=== PATIENT | male | born 1965 | race Two or more races ===

== ENCOUNTER 2021-03-17 20:58 | Inpatient (IN) | payer MEDICAID ==
[~2021-03-17] VITALS: Ht 182.9 cm; Wt 114.4 kg
[~2021-03-17 20:58] MED LIST: HEPARIN 1000 UNITS/ML 10ML ONE; NICARDIPINE 100MCG/ML 10ML VIAL (CATH LAB) IV ONE; NITROGLYCERIN 50MCG/ML 10ML VIAL (CATH LAB) IV ONE
[2021-03-17] MEDS ORDERED: MORPHINE SULFATE 4 MG/ML CPJ (NOT FOR IM USE) IV SCH (21:15)
[2021-03-17] MEDS ORDERED: ASPIRIN 325MG EC TABLET PO ONE (21:15)
[2021-03-17] MEDS: NITROGLYCERIN 50MG PREMIX 250 ML IV SCH (21:28)
[2021-03-17] MEDS ORDERED: NITROGLYCERIN 50MG PREMIX 250 ML IV SCH (21:30)
[2021-03-17] MEDS ORDERED: NALOXONE HCL 0.4 MG/ML 1ML VIAL IV PRN (21:30)
[2021-03-17 21:36] LABS: BASOPHILS % 0.3 % (0.0-2.0); EOSINOPHILS % 0.2 % (0.0-5.0); HEMATOCRIT. 52.2 % (42.0-52.0); HEMOGLOBIN. 17.8 g/dL (14.0-18.0); LYMPHOCYTES % 10.3 % (20.0-50.0); MEAN CORPUSCULAR HEMOGLOBIN 31.7 pg (28.0-32.0); MEAN CORPUSCULAR VOLUME 92.7 fL (80.0-94.0); MEAN PLATELET VOLUME 7.9 fl (7.4-10.4); MONOCYTES % 5.3 % (2.0-8.0); NEUTROPHILS % 83.9 % (40.0-76.0); PLATELET 288 x1000/uL (130-400); RED BLOOD CELL COUNT 5.63 mill/uL (4.7-6.1); RED CELL DISTRIBUTION WIDTH 12.3 % (11.6-14.6)
[2021-03-17 21:42] LABS: CHLORIDE 105 mEq/L (98-107)
[2021-03-17] MEDS ORDERED: VERAPAMIL HCL 2.5 MG/1 ML 2ML VIAL IV ONE (21:48)
[2021-03-17] MEDS ORDERED: IODIXANOL 320MG/ML 100 ML BOTTLE IV ONE ×2 (21:48→22:36)
[2021-03-17] MEDS ORDERED: LIDOCAINE HCL 1% 20ML VIAL (Pyxis) INJ ONE (21:48)
[2021-03-17] MEDS ORDERED: IOHEXOL-300 100 ML BOTTLE ONE (21:49)
[2021-03-17] MEDS ORDERED: FENTANYL CITRATE/PF 50MCG/ML 2ML VIAL ONE ×2 (22:05→22:58)
[2021-03-17] MEDS ORDERED: MIDAZOLAM HCL 2 MG/2 ML VIAL ONE ×2 (22:06→22:12)
[2021-03-17] MEDS ORDERED: HEPARIN SODIUM 1,000 UNIT/1ML VIAL IV ONE (22:16)
[2021-03-17] MEDS ORDERED: HYDRALAZINE 20MG/ML VIAL ONE (22:43)
[2021-03-17] MEDS ORDERED: TICAGRELOR 90 MG TABLET PO ONE (22:43)
[2021-03-17] MEDS ORDERED: METOPROLOL TARTRATE 5MG/5ML VIAL IV ONE (22:54)
[2021-03-17] MEDS ORDERED: DIPHENHYDRAMINE 50MG/ML VIAL ONE (22:58)
[2021-03-17] MEDS ORDERED: ATROPINE SULFATE 1MG/10ML SYR IV PRN (23:30)
[2021-03-17] MEDS: SODIUM CHLORIDE 0.45% 500 ML IV SCH (23:30)
[2021-03-18] VITALS (89 sets, daily range): BP systolic 110–159; BP diastolic 56–116
[2021-03-18] MEDS: ACETAMINOPHEN 325MG TABLET PO PRN ×3 (00:40→08:18)
[2021-03-18] MEDS: ATORVASTATIN CALCIUM 40MG TABLET PO SCH ×2 (00:40→21:14)
[2021-03-18] MEDS: AMLODIPINE 10MG TABLET PO SCH ×2 (00:41→08:18)
[2021-03-18] MEDS: METOPROLOL TARTRATE 50MG TABLET PO SCH ×4 (00:42→21:14)
[2021-03-18] MEDS: SODIUM CHLORIDE 0.45% 500 ML IV SCH ×3 (01:26→11:30)
[2021-03-18] MEDS ORDERED: AMIODARONE HCL 900 MG in DEXT 5% WATER 482 ML IV PRN (02:00)
[2021-03-18] MEDS ORDERED: AMIODARONE HCL 150 MG in DEXT 5% WATER 100 ML IV SCH (02:00)
[2021-03-18] MEDS ORDERED: MAGNESIUM 2 G PREMIX 50 ML IV PRN (02:00)
[2021-03-18] MEDS: NITROGLYCERIN 50MG PREMIX 250 ML IV SCH ×2 (05:59→23:33)
[2021-03-18 06:19] LABS: BASOPHILS % 0.3 % (0.0-2.0); HEMOGLOBIN. 13.3 g/dL (14.0-18.0); LYMPHOCYTES % 11.7 % (20.0-50.0); MEAN CORPUSCULAR HEMOGLOBIN 31.5 pg (28.0-32.0); MEAN CORPUSCULAR VOLUME 92.7 fL (80.0-94.0); MONOCYTES % 6.2 % (2.0-8.0); NEUTROPHILS % 81.8 % (40.0-76.0); RED BLOOD CELL COUNT 4.21 mill/uL (4.7-6.1); RED CELL DISTRIBUTION WIDTH 12.2 % (11.6-14.6)
[2021-03-18] MEDS: TICAGRELOR 90 MG TABLET PO SCH ×2 (08:18→17:48)
[2021-03-18] MEDS ORDERED: CLOPIDOGREL 75MG TABLET PO SCH (09:00)
[2021-03-18] MEDS: ONDANSETRON HCL 4MG/2ML INJ IV PRN ×2 (09:20→18:00)
[2021-03-18] MEDS: ASPIRIN 325MG TABLET PO SCH (09:21)
[2021-03-18 10:55] LABS: CHLORIDE 103 mEq/L (98-107)
[2021-03-18 12:06] LABS: PLATELET 116 x1000/uL (130-400)
[2021-03-18] MEDS: MORPHINE SULFATE 2 MG/ML CPJ (NOT FOR IM USE) IV PRN ×3 (13:46→21:59)
[2021-03-18] MEDS: SODIUM CHLORIDE 0.45% 1,000 ML IV SCH (17:51)
[2021-03-19] VITALS (84 sets, daily range): BP systolic 104–163; BP diastolic 53–91
[2021-03-19] MEDS: SODIUM CHLORIDE 0.45% 1,000 ML IV SCH ×4 (03:07→22:28)
[2021-03-19] MEDS: MORPHINE SULFATE 2 MG/ML CPJ (NOT FOR IM USE) IV PRN (03:49)
[2021-03-19 06:36] LABS: CHLORIDE 103 mEq/L (98-107)
[2021-03-19 06:40] LABS: BASOPHILS % 0.3 % (0.0-2.0); EOSINOPHILS % 0.4 % (0.0-5.0); HEMATOCRIT. 41.4 % (42.0-52.0); HEMOGLOBIN. 14.4 g/dL (14.0-18.0); LYMPHOCYTES % 15.8 % (20.0-50.0); MEAN CORPUSCULAR HEMOGLOBIN 32.1 pg (28.0-32.0); MEAN CORPUSCULAR VOLUME 92.4 fL (80.0-94.0); MEAN PLATELET VOLUME 7.8 fl (7.4-10.4); MONOCYTES % 13.8 % (2.0-8.0); NEUTROPHILS % 69.7 % (40.0-76.0); PLATELET 236 x1000/uL (130-400); RED BLOOD CELL COUNT 4.48 mill/uL (4.7-6.1); RED CELL DISTRIBUTION WIDTH 11.9 % (11.6-14.6)
[2021-03-19] MEDS: ONDANSETRON HCL 4MG/2ML INJ IV PRN (09:08)
[2021-03-19] MEDS: MORPHINE SULFATE 4 MG/ML CPJ (NOT FOR IM USE) IV PRN (09:08)
[2021-03-19] MEDS: ASPIRIN 325MG TABLET PO SCH (09:08)
[2021-03-19] MEDS: TICAGRELOR 90 MG TABLET PO SCH ×2 (09:08→17:17)
[2021-03-19] MEDS: AMLODIPINE 10MG TABLET PO SCH (09:09)
[2021-03-19] MEDS: METOPROLOL TARTRATE 50MG TABLET PO SCH ×2 (09:09→21:00)
[2021-03-19] MEDS: LISINOPRIL 20MG TABLET PO SCH (09:53)
[2021-03-19] MEDS: ATORVASTATIN CALCIUM 40MG TABLET PO SCH (21:16)
[2021-03-20] VITALS (63 sets, daily range): BP systolic 81–134; BP diastolic 34–74
[2021-03-20] MEDS: AMLODIPINE 10MG TABLET PO SCH (09:30)
[2021-03-20] MEDS: ASPIRIN 325MG TABLET PO SCH (09:30)
[2021-03-20] MEDS: METOPROLOL TARTRATE 50MG TABLET PO SCH (09:30)
[2021-03-20] MEDS: TICAGRELOR 90 MG TABLET PO SCH (09:30)
[2021-03-20] MEDS: SODIUM CHLORIDE 0.45% 1,000 ML IV SCH ×2 (09:31→18:43)
[2021-03-20] MEDS: LISINOPRIL 20MG TABLET PO SCH (09:31)
[2021-03-20] MEDS ORDERED: ISOSORBIDE MONONITRATE 30MG TABLET SR 24HR PO SCH (10:45)
[2021-03-20] MEDS ORDERED: SODIUM CHLORIDE 0.9% 250 ML IV ONE (13:45)
[2021-03-20] MEDS ORDERED: SODIUM CHLORIDE 0.9% 250 ML IV SCH (14:00)
[2021-03-20] MEDS ORDERED: CLOPIDOGREL 75MG TABLET PO SCH (15:30)
[2021-03-20] MEDS: ACETAMINOPHEN 325MG TABLET PO PRN (17:14)
[2021-03-20] MEDS: METOPROLOL TARTRATE 25MG TABLET PO SCH (21:00)
[2021-03-20] MEDS: ATORVASTATIN CALCIUM 40MG TABLET PO SCH (21:54)
[2021-03-21] VITALS (14 sets, daily range): BP systolic 100–142; BP diastolic 49–87
[2021-03-21] MEDS: MORPHINE SULFATE 4 MG/ML CPJ (NOT FOR IM USE) IV PRN ×2 (05:41→06:11)
[2021-03-21 05:55] LABS: BASOPHILS % 0.5 % (0.0-2.0); EOSINOPHILS % 2.2 % (0.0-5.0); HEMATOCRIT. 44.1 % (42.0-52.0); HEMOGLOBIN. 15.2 g/dL (14.0-18.0); LYMPHOCYTES % 26.8 % (20.0-50.0); MEAN CORPUSCULAR HEMOGLOBIN 32.1 pg (28.0-32.0); MEAN CORPUSCULAR VOLUME 93.1 fL (80.0-94.0); MEAN PLATELET VOLUME 7.9 fl (7.4-10.4); MONOCYTES % 9.5 % (2.0-8.0); PLATELET 250 x1000/uL (130-400); RED BLOOD CELL COUNT 4.73 mill/uL (4.7-6.1)
[2021-03-21 06:02] LABS: CHLORIDE 106 mEq/L (98-107)
[2021-03-21] MEDS ORDERED: CLOPIDOGREL 75MG TABLET PO SCH (09:00)
[2021-03-21] MEDS ORDERED: ASPIRIN 81MG TABLET PO SCH (09:00)
[2021-03-21] MEDS ORDERED: ASPI-1497 PO (09:37)
[2021-03-21] MEDS ORDERED: ATOR10TA MT (09:38)
[2021-03-21] MEDS ORDERED: CLOP-31 PO (09:39)
[2021-03-21] MEDS ORDERED: METO1TAB26 MT (09:39)
[2021-03-21] MEDS: METOPROLOL TARTRATE 25MG TABLET PO SCH (09:56)
[2021-03-21] MEDS: ACETAMINOPHEN 325MG TABLET PO PRN (10:07)
== END 2021-03-21 10:30 | disposition home or self-care (01) | DRG 174 ==
LOC: ER 20:58 → CVICU 21:41 → ENRESERV 03-18 00:03 → 5WST 03-21 06:36
PROVIDERS: ADMIT Internal Medicine; ATTEND Internal Medicine
PROC: 027035Z Dilation of Coronary Artery, One Artery with Two Drug-eluting Intraluminal Devices, Percutaneous Approach (ICD-10-PCS; principal; 2021-03-17)
PROC: 4A023N7 Measurement of Cardiac Sampling and Pressure, Left Heart, Percutaneous Approach (ICD-10-PCS; 2021-03-17)
PROC: B211YZZ Fluoroscopy of Multiple Coronary Arteries using Other Contrast (ICD-10-PCS; 2021-03-17)
DX: I21.09 ST elevation (STEMI) myocardial infarction involving other coronary artery of anterior wall (principal); I47.2 Ventricular tachycardia; I10 Essential (primary) hypertension; Z20.822 Contact with and (suspected) exposure to COVID-19; I16.0 Hypertensive urgency; Z82.49 Family history of ischemic heart disease and other diseases of the circulatory system; Z90.49 Acquired absence of other specified parts of digestive tract; Z79.899 Other long term (current) drug therapy; Z79.82 Long term (current) use of aspirin; Z79.02 Long term (current) use of antithrombotics/antiplatelets
CPT/HCPCS: 36415; 71045; 80048; 80053; 83735; 83880; 84100; 84484; 85025; 85347; 87426; 92928; 93005; 93306; 93454; 99291; C1725; C1769; C1874; C1887; C1893; J0282; J0360; J1200; J1644; J2250; J2270; J2405; J3010; J3490; J7040; J7060; Q9967; J8499